=== PATIENT | female | born 1980 | race Caucasian/White ===

== ENCOUNTER → 2021-10-09 | Outpatient (CLI) | payer OTHER | LOC: COL.RAD 07:57 | DX: M25.811 Other specified joint disorders, right shoulder (principal) | CPT/HCPCS: A9585; Q9967 ==

== ENCOUNTER → 2022-06-19 | Outpatient (CLI) | payer OTHER | LOC: MHCPAIN 14:21 | DX: M77.01 Medial epicondylitis, right elbow (principal); G56.21 Lesion of ulnar nerve, right upper limb | CPT/HCPCS: G0463 ==